=== PATIENT | male | born 1995 | race Caucasian/White ===

== ENCOUNTER → 2017-11-01 | Outpatient (CLI) | payer BC ==
[~2017-11-01] MED LIST: IOHEXOL 350 MG/ML 100 ML (OMNIPAQUE 350) VIAL IV ONE; NS 250 ML (IVPB) BAG IV ONE
--- NOTE | 2017-11-01 12:59 | Diagnostic Imaging Report ---
PROCEDURE: CT abdomen and pelvis with contrast, rule out appendicitis. TECHNIQUE: Multiple contiguous axial images were obtained through the abdomen and pelvis after the administration of intravenous contrast. DATE: November 01, 2017. COMPARISON: None. INDICATION: 22-year-old male, abdominal pain. FINDINGS: The visualized portions of the lung bases are clear. The liver is unremarkable in size and contour. There is a 3 mm low-attenuation lesion in the right lobe of the liver on axial image 37, which is too small to characterize. The main, right, and left portal veins are patent. The gallbladder is unremarkable. There is no identified intrahepatic or extrahepatic bile duct dilation. The main pancreatic duct is not abnormally dilated. The pancreatic parenchyma is unremarkable. The spleen is normal in size. The adrenal glands are unremarkable. Unremarkable appearance of the renal parenchyma. The urinary collecting systems are not distended. There is no identified renal or ureteral stone. The urinary bladder is unremarkable in appearance. The intestinal tract is not distended. The appendix is best seen on axial image 78 and adjacent sequential images. There is no evidence of acute appendicitis. There is no free intraperitoneal air. There is no drainable fluid collection. There is no free pelvic fluid. There is no identified abnormally enlarged lymph node within the abdomen or pelvis which meets CT size criteria for adenopathy. 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 There is no identified acute bony abnormality. There is a sclerotic focus in the right iliac bone on coronal image 56 measuring 6 mm in size with narrow zone of transition. This has internal attenuation of 850 Hounsfield units. This is nonspecific although likely benign. No additional sclerotic or otherwise noted bone lesion. IMPRESSION: CT ABDOMEN AND PELVIS. 1. No evidence of acute appendicitis or other acute abnormality within the abdomen or pelvis. Report was called to Suellen COLLINS by jia at 1:00 p.m. Dictated by: Dictated on workstation # [id number]
== END ==
LOC: RAD 11:01
PROVIDERS: ATTEND Nurse Practitioner Primary Care
DX: R10.9 Unspecified abdominal pain (principal)
CPT/HCPCS: 74177